=== PATIENT | female | born 1965 | race Caucasian/White ===

== ENCOUNTER 2023-10-11 07:49 | Day surgery (SDC) | payer OTHER, SELFPAY ==
--- NOTE | 2023-10-01 12:50 | EKG12_ITS ---
Test Reason : PRE OP Blood Pressure : / mmHG Vent. Rate : 068 BPM Atrial Rate : 068 BPM P-R Int : 114 ms QRS Dur : 086 ms QT Int : 392 ms P-R-T Axes : 028 -08 038 degrees QTc Int : 416 ms Normal sinus rhythm Normal ECG Confirmed by Dagoberto Bishop ([id number]), supervising film or videotape editor MARYLOU HAMILTON ([id number]) on 10/02/2023 6:51:53 AM Referred By: Verna Bryant Confirmed By:Dagoberto Bishop
[2023-10-11] VITALS (10 sets, daily range): BP systolic 114–138; BP diastolic 79–97; PULSE 59–133; RESP 16–20; TEMP 36.3–36.7; O2SAT 93–100; BMI 22.5
--- NOTE | 2023-10-11 | BR_PTH ---
PATIENT: LIBERTAD GIPSON LOC: [facility] – [place] U#:[id number] AGE/SX: 58/F ROOM: RE10/11/[address]: Dr. Verna Bryant MD : 1965 BED: DIS: 10/11/2023 SPEC #: [id number] RECD: 10/11/23 14:44 STATUS: MUNA TOPETE #: [id number] MASON: 10/11/23 00:[address]: Verna Bryant DEPT: SURGICAL PATHOLOGY RECD BY: Luis Prater ENTERED: 10/14/23 10:05 SP TYPE: MAMOPLASTY OTHR DR: Dr. Drew Chin MD Tissues: A - Right breast, NOS B - Left breast, NOS Procedures: Surgery Specimen Level IV HEADER OPERATION: Bilateral breast reduction PRE-OP DIAGNOSIS: Chronic shoulder pain, breast hypertrophy TISSUE SUBMITTED: A- Right breast tissue 254 gm, B- Left breast 286gm MICROSCOPIC DIAGNOSIS A. Right breast tissue, reduction mammoplasty: Fibrocystic change. Focal intraductal hyperplasia without atypia. Skin with no pathologic change. B. Left breast tissue, reduction mammoplasty: Fibrocystic change. Focal intraductal hyperplasia without atypia. Skin with no pathologic change. AM/mr 10/15/2023 MICROSCOPIC DESCRIPTION Slides are reviewed. GROSS DESCRIPTION A. A - Received in fixative is one container labeled with the patient's name and designated right breast tissue 254 gm. The specimen consists of multiple pieces of fibroadipose tissue with a few of the pieces showing reynaga-white skin, weighing in aggregate 254 (weighed in OR) gm and measuring in aggregate 17.0 x 15.0 x 5.0 cm. No skin lesion is identified. Sections reveal yellow adipose cut surfaces mixed with scant fibrous areas. No mass lesion is identified. [employer] sections are submitted in six cassettes. Cassette 1 contains the skin and underlying tissue. B - Received in fixative is one container labeled with the patient's name and designated Left breast tissue 286. The specimen consists of multiple pieces of fibroadipose tissue with a few of the pieces showing reynaga-white skin, weighing in aggregate 286 (weighed in OR) gm and measuring in aggregate 19.0 x 14.0 x 5.0 cm. No skin lesion is identified. Sections reveal yellow adipose cut surfaces mixed with scant fibrous areas. No mass lesion is identified. Gl[employer] Inspector sections are submitted in six cassettes. Cassette 1 contains the skin piece. / SJ:mr 10/14/23 TC:5 CPT: 24719s7
[2023-10-11] MEDS: Lactated Ringers 1,000 ML 15 ML IV ×2 (08:35→15:20)
--- NOTE | 2023-10-11 09:12 | PCM.HP.BLA ---
History and Physical Date of Admission: 10/11/23 The patient is examined and there are no changes to the H&P dated 12/03/2023. She presents for breast reduction surgery due to chronic neck shoulder and back pain. Assessment & Plan Assessment/Plan (1) Chronic shoulder pain: (2) Breast hypertrophy: PLAN: Plan Patient for planned breast reduction.
[2023-10-11] MEDS: Cefazolin 2 GM in 0.9% Normal Saline (100mL Bag) 100 ML IV (10:03)
[2023-10-11] MEDS: EPINEPHrine Nasal 0.1% 30 ML Bottle OPERA.SITE (10:34)
[2023-10-11] MEDS: Gentamicin 80 MG/2 ML Vial (10:34)
[2023-10-11] MEDS: Methylene Blue 1% 100 MG/10 ML VIAL (10:34)
[2023-10-11] MEDS: Bupivacaine 0.25% 30 ML Vial (14:19)
--- NOTE | 2023-10-11 14:36 | DCINST_ITS ---
Discharge Instructions Dressing / Incision Additional Dressing/Incision Instructions:: Keep your back elevated (recliner position) to reduce swelling. Avoid straining, lifting, or bending down. Follow the instructions given in the office. Follow Up Care Please Follow Up With: Verna Bryant MD When: 1 week Test Results: Test results from this visit will be discussed in further detail at your follow- up appointment, if applicable. Discharge Plan Admission Attending Provider: Verna Bryant Primary Care Provider: Drew Chin Discharge Orders/Prescriptions Prescriptions: No Action cephalexin 500 mg capsule 500 mg PO BID Qty: 14 0RF metronidazole [Metrogel] 1 % gel 1 applic topical DAILY PRN (Reason: ROSECA) multivitamin [Daily Multi-Vitamin] Tablet 1 tab PO DAILY Referrals / Follow Up: Drew Chin MD [Primary Care Provider] - Disposition Disposition (needs filled in before D/C Order can be placed): Home, Self Care
--- NOTE | 2023-10-11 14:37 | DCINST_ITS ---
Discharge Instructions Dressing / Incision Additional Dressing/Incision Instructions:: Keep your back elevated (recliner position) to reduce swelling. Avoid straining, lifting, or bending down. Follow the instructions given in the office. Follow Up Care Please Follow Up With: Verna Bryant MD Test Results: Test results from this visit will be discussed in further detail at your follow- up appointment, if applicable. Discharge Plan Admission Attending Provider: Verna Bryant Primary Care Provider: Drew Chin Instructions Additional Instructions / Restrictions: -give and instruct on use of incentive spirometer Discharge Orders/Prescriptions Prescriptions: No Action cephalexin 500 mg capsule 500 mg PO BID Qty: 14 0RF metronidazole [Metrogel] 1 % gel 1 applic topical DAILY PRN (Reason: ROSECA) multivitamin [Daily Multi-Vitamin] Tablet 1 tab PO DAILY Referrals / Follow Up: Drew Chin MD [Primary Care Provider] - Disposition Disposition (needs filled in before D/C Order can be placed): Home, Self Care
--- NOTE | 2023-10-11 14:44 | PCM.OPRPT ---
Problems Associated Problem List Diagnoses (1) Chronic shoulder pain: (2) Breast hypertrophy: Report of Operation Date of Procedure: 10/11/23 Pre-Operative Diagnosis: Bilateral breast hypertrophy, chronic neck and shoulder pain Post-Operative Diagnosis: Same Surgery/Procedure Performed:: Bilateral breast reduction (right?254 g; left?286 g) Surgeon: Verna Bryant Type of Anesthesia: General Specimen's removed: Bilateral breast tissue Drains: None Estimated Blood Loss (mL): 50 cc Description of Procedure: The patient presents for bilateral breast reduction. The procedure been thoroughly reviewed with the patient. An informed consent was obtained from the patient prior to surgery. The patient is marked in the preop holding area prior to surgery. The patient was brought to the operating room and placed under general anesthesia in supine position. Care was taken to insert a Chaparro catheter, a warming blanket, sequential compression stockings, and pad all pressure points. The breast and chest are prepped and draped in the usual sterile fashion. We initially began with incising all the incisions. Following this, the pedicle is de-epithelialized. Following this, the medial and lateral infra aspects of the breast are removed using argon coagulation. The pedicle is then from the upper flap and dissection continued cephalad maintaining the upper flap at least 2 cm in thickness. Following this, the pedicle was trimmed in order to allow it to comfortably fit beneath the upper flap. The wound is irrigated with antibiotic solution and checked for meticulous hemostasis. Hemoblast was sprayed on the dissected breast before closure. The breast is then infolded and tacked together using initially 6 silk suture and skin clips. When a satisfactory size and shape is noted, would begin wound closure. A few Vicryl sutures are initially put in the deep subcutaneous tissue. A 3-0 STRATAFIX suture is then used to approximate the incisions in 3 layers. Approximately 5 cm above the inframammary crease, an opening is made for the nipple areola and is brought out through this opening. The nipple areola is tacked in place using 4-0 nylon sutures. A 3-0 STRATAFIX suture was then used to approximate all skin edges in a subcuticular fashion. The identical procedure was performed on the opposite side. Quarter percent plain Marcaine is used to inject the incisions. The incisions are dressed with Xeroform and fluff gauze. And she is placed in a surgery bra. She tolerated the procedure well and was taken to the recovery area in an awakening in stable condition. Needle and sponge counts are correct. Complications None Admit VTE Documentation VTE Mechan Device Prophylaxis: SCD's
== END 2023-10-11 18:07 | disposition home or self-care (01) ==
LOC: SDC 07:59 → AC 07:59
PROVIDERS: PCP Family Medicine; Referring Provider Plastic Surgery; Visit Provider Plastic Surgery
PROC: 0H0U0ZZ Alteration of Left Breast, Open Approach (ICD-10-PCS; CPT 19318; principal; 2023-10-11 09:10)
DX: G89.29 Other chronic pain (principal); N60.11 Diffuse cystic mastopathy of right breast; N62 Hypertrophy of breast; M25.519 Pain in unspecified shoulder; M54.2 Cervicalgia; N60.12 Diffuse cystic mastopathy of left breast
CPT/HCPCS: 19318; 00402; 88305; 93005; J7120; J2405